=== PATIENT | male | born 1990 | race Caucasian/White ===

== ENCOUNTER 2017-03-28 17:27 | Emergency (ER) | payer SELFPAY ==
--- NOTE | 2017-03-28 18:14 | ER NURSING DOCUMENTATION ---
Nurse's Notes [facility] Name:Gumaro Andres Age:26 yrs Sex:Male :1990 Arrival Date:03/28/2017 Time:17:27 Bed2 Private MD: Diagnosis:Viral Pharyngitis Presentation: 03/28 17:31 Transition of care: patient was not received from another setting of care. tg 17:31 Acuity: THEODORE 4 tg 17:31 Method Of Arrival: Private Vehicle tg 17:38 Presenting complaint: Patient states: Sore throat, began today, exposure to co-worker tg who has strep. No other symptoms. Triage Assessment: 17:39 General: Appears in no apparent distress, Behavior is cooperative, pleasant. Pain: tg Complains of pain in left aspect of posterior pharynx and right aspect of posterior pharynx. EENT: Throat is reddened. Cardiovascular: Capillary refill < 3 seconds. Respiratory: Respiratory effort is even, unlabored. Derm: Skin is pink, warm & dry. Historical: - Allergies: No known drug Allergies; - Home Meds: 1. None - PMHx: strep; murmur; - PSHx: SHOULDER SURGERY; - Tetanus: < 10 years. - Ebola Screening: : Patient negative for fever greater than or equal to 101.5 degrees Fahrenheit, and additional compatible Ebola Virus Disease symptoms. Patient denies exposure to infectious person. Patient denies travel to an Ebola-affected area in the 21 days before illness onset. No symptoms or risks identified at this time. . - Immunization history: Flu Vaccine >1 year. - Social history: Smoking status: Patient states was never smoker of tobacco. Screenin:43 Infectious Disease Risk Unable to Obtain. Abuse screen: Denies threats or abuse. Denies tg injuries from another. Nutritional screening: No deficits noted. Vital Signs: 17:34 BP 160 / 101; Pulse 100; Resp 16; Temp 97.7; Pulse Ox 92% ; Weight 95.25 kg; Height 6 jt ft. 1 in. (185.42 cm); Pain 5/10; 17:34 Body Mass Index 27.71 (95.25 kg, 185.42 cm) jt ED Course: 17:30 Patient arrived in ED. arc 17:31 Jorge Luis Christine RN is Primary Nurse. tg 17:32 Triage completed. tg 17:40 Arm band placed on. tg 17:43 Micha Estrella MD is Attending Physician. fl 17:43 Valuables Remains with patient. tg Administered Medications: No medications were administered Outcome: 17:54 Discharge ordered by . fl 18:12 Discharged to home ambulatory. tg 18:12 Condition: stable 18:12 Discharge Assessment: Patient awake, alert and oriented x 3. No cognitive and/or functional deficits noted. Patient verbalized understanding of disposition instructions. 18:12 Instructed on discharge instructions, follow up and referral plans. 18:13 Patient left the ED. tg Signatures: Jorge Luis Christine, RN RN tg Micha Estrella MD MD fl Fatimah Estrella, Brenda Gary
--- NOTE | 2017-03-28 18:14 | ER PHYSICIAN DOCUMENTATION ---
Physician Documentation [facility] Name:Gumaro Andres Age:26 yrs Sex:Male :1990 Arrival Date:03/28/2017 Time:17:27 Bed2 Private MD: Micha Carlson Disposition: 03/28/17 17:54 Discharged to Home/Self Care. Impression: Viral Pharyngitis. - Condition is Good. - Discharge Instructions: PHARYNGITIS, Viral. - Medical Reconciliation form form. - Follow up: Private Physician; When: As needed; Reason: Worsening of condition. - Problem is new. - Symptoms have improved. HPI: 03/28 17:51 This 26 yrs old Male presents to ER via Private Vehicle with complaints of sc Sore Throat. 17:51 The patient presents with sore throat. The patient describes throat pain as raw. Onset: sc The symptom(s)/episode began/occurred today. Severity of symptoms: At their worst the symptoms were mild. Modifying factors: The patient has had contact with sick co-worker(s). Historical: - Allergies: No known drug Allergies; - Home Meds: 1. None - PMHx: strep; murmur; - PSHx: SHOULDER SURGERY; - Tetanus: < 10 years. - Ebola Screening: : Patient negative for fever greater than or equal to 101.5 degrees Fahrenheit, and additional compatible Ebola Virus Disease symptoms. Patient denies exposure to infectious person. Patient denies travel to an Ebola-affected area in the 21 days before illness onset. No symptoms or risks identified at this time. . - Immunization history: Flu Vaccine >1 year. - Social history: Smoking status: Patient states was never smoker of tobacco. ROS: 17:52 Constitutional: Negative for fever, chills, and weight loss. sc Eyes: Negative for injury, pain, redness, and discharge. Neck: Negative for injury, pain, and swelling. Cardiovascular: Negative for chest pain, palpitations, and edema. Respiratory: Negative for shortness of breath, cough, wheezing, and pleuritic chest pain. Abdomen/GI: Negative for abdominal pain, nausea, vomiting, diarrhea, and constipation. Back: Negative for injury and pain. MS/Extremity: Negative for injury and deformity. Skin: Negative for injury, rash, and discoloration. 17:52 Neuro: Negative for headache, weakness, numbness, tingling, and seizure. sc 17:52 ENT: Positive for sore throat. Exam: Constitutional: This is a well developed, well nourished patient who is awake, alert, and in no acute distress. Head/Face: Normocephalic, atraumatic. Eyes: Pupils equal round and reactive to light, extra-ocular motions intact. Lids and lashes normal. Conjunctiva and sclera are non-icteric and not injected. Cornea within normal limits. Periorbital areas with no swelling, redness, or edema. Neck: Trachea midline, no thyromegaly or masses palpated, and no cervical lymphadenopathy. Supple, full range of motion without nuchal rigidity, or vertebral point tenderness. No meningismus. Cardiovascular: Regular rate and rhythm with a normal S1 and S2. No gallops, murmurs, or rubs. Normal PMI, no JVD. No pulse deficits. Respiratory: Lungs have equal breath sounds bilaterally, clear to auscultation and percussion. No rales, rhonchi or wheezes noted. No increased work of breathing, no retractions or nasal flaring. 17:52 Skin: Warm, dry with normal turgor. Normal color with no rashes, no lesions, and no sc evidence of cellulitis. 17:52 ENT: Mouth: no acute changes, Oral mucosa: pink and intact, moist, Posterior pharynx: erythema, that is mild, exudate, is not appreciated. 17:52 Neck: External neck: no acute changes. 17:52 Respiratory: Respirations: normal, Breath sounds: are normal. Vital Signs: 17:34 BP 160 / 101; Pulse 100; Resp 16; Temp 97.7; Pulse Ox 92% ; Weight 95.25 kg; Height 6 jt ft. 1 in. (185.42 cm); Pain 5/10; 17:34 Body Mass Index 27.71 (95.25 kg, 185.42 cm) jt MDM: 17:43 Patient medically screened. sc 17:52 Differential diagnosis: group A strep tonsillitis, influenza, chlamydia pharyngitis, sc pharyngitis. Data reviewed: vital signs, nurses notes, lab test result(s), and as a result, I will discharge patient. 03/28 17:49 Order name: RAPID STREP SCRN CUL IF NEG; Complete Time: 17:51 EDMS 03/28 17:51 Interpretation: Normal. ak 03/29 09:11 Order name: THROAT FOR BETA STREP EDMS Dispensed Medications: No medications were administered Signatures: Jorge Luis Christine RN RN tg Micha Estrella MD MD ak
== END 2017-03-28 18:14 | disposition home or self-care (01) ==
LOC: ER 17:27
DX: J02.8 Acute pharyngitis due to other specified organisms (principal)
CPT/HCPCS: 86403; 87081; 99281; 99282